=== PATIENT | male | born 1950 | race Caucasian/White ===

== ENCOUNTER 2016-12-06 22:54 | Emergency (ER) | payer OTHER ==
[~2016-12-06] VITALS: Ht 175.3 cm; Wt 90.7 kg
[~2016-12-06 22:54] MED LIST: ASPI-231 PO; METO-169 PO
[2016-12-06 23:38] LABS: Basophils # (auto) 0.1 uL; Basophils % (auto) 0.6 % (0.0-2.0); Eosinophils # (auto) 0.2 uL; Eosinophils % (auto) 2.4 % (0.0-7.0); Hematocrit 45.6 % (41.0-53.0); Hemoglobin 15.3 g/dL (13.5-17.5); Lymphocytes # (auto) 2.7 uL; Lymphocytes % (auto) 31.8 % (10.0-50.0); Mean Corpuscular Hemoglobin 30.5 pg (28.0-32.0); Mean Corpuscular Hgb Conc. 33.6 g/dL (32.0-36.0); Mean Corpuscular Volume 90.6 fL (80.0-100.0); Mean Platelet Volume 8.1 fL (7.4-10.4); Monocytes % (auto) 11.8 % (0.0-12.0); Neutrophils # (auto) 4.4 uL; Neutrophils % (auto) 53.4 % (37.0-80.0); Platelet Count (auto) 251 10^3/uL (140-450); Red Cell Distribution Width 12.8 % (11.6-16.0); White Blood Cell 8.4 10^3/uL (4.4-10.8)
[2016-12-06 23:53] LABS: INR 0.98 (0.9-1.15); Partial Thromboplastin Time 29.2 sec (22.64-33.71); Prothrombin Time 10.7 sec (9.37-12.3)
[2016-12-06 23:55] LABS: Albumin 3.8 g/dL (3.4-5.0); Anion Gap 10 (5-15); Blood Urea Nitrogen 20 mg/dL (7-18); Calcium 8.4 mg/dL (8.5-10.1); Carbon Dioxide 26 mmol/L (21-32); Chloride 108 mmol/L (98-107); Magnesium 2.1 mg/dL (1.6-2.6); Potassium 4.1 mmol/L (3.5-5.1); Sodium 144 mmol/L (136-145)
[2016-12-06 23:58] LABS: Aspartate Aminotransferase 13 U/L (15-37); BUN/Creatinine Ratio 24.4; GFR African American 122 mL/min; GFR Non-African American 101 mL/min; Glucose 104 mg/dL (74-106)
[2016-12-07 00:02] LABS: B-Type Natriuretic Peptide 28.14 pg/mL (0-100)
[2016-12-07 00:03] LABS: Alkaline Phosphatase 76 U/L (45-117); Bilirubin, Total 0.4 mg/dL (0.2-1.0)
[2016-12-07 00:06] LABS: Temperature: 23.1 C (20.0-25.0)
[2016-12-07] MEDS ORDERED: PANTOPRAZOLE 40 MG TAB PO ONE (07:15)
[2016-12-07 07:40] VITALS: BP 166/97
== END 2016-12-07 07:15 | disposition home or self-care (01) ==
LOC: ER 22:56
DX: K29.70 Gastritis, unspecified, without bleeding (principal); R07.89 Other chest pain; I10 Essential (primary) hypertension; I25.10 Atherosclerotic heart disease of native coronary artery without angina pectoris; F17.210 Nicotine dependence, cigarettes, uncomplicated; Z95.1 Presence of aortocoronary bypass graft
CPT/HCPCS: 36415; 71020; 80053; 83735; 83880; 84484; 85025; 85610; 85730; 93005; 94761

== ENCOUNTER 2018-09-25 05:23 | Emergency (ER) | payer OTHER ==
[~2018-09-25] VITALS: Ht 175.3 cm; Wt 95.3 kg
[2018-09-25 06:13] LABS: Basophils # (auto) 0 uL; Basophils % (auto) 0.5 % (0.0-2.0); Eosinophils # (auto) 0.2 uL; Eosinophils % (auto) 2.2 % (0.0-7.0); Hematocrit 47.2 % (41.0-53.0); Hemoglobin 15.8 g/dL (13.5-17.5); Lymphocytes # (auto) 2.5 uL; Lymphocytes % (auto) 33.7 % (10.0-50.0); Mean Corpuscular Hemoglobin 31.4 pg (28.0-32.0); Mean Corpuscular Hgb Conc. 33.5 g/dL (32.0-36.0); Mean Corpuscular Volume 93.8 fL (80.0-100.0); Monocytes # (auto) 0.9 uL; Monocytes % (auto) 11.8 % (0.0-12.0); Neutrophils # (auto) 3.8 uL; Neutrophils % (auto) 51.8 % (37.0-80.0); Nucleated Red Blood Cells % 0.1 %; Platelet Count (auto) 211 10^3/uL (140-450); Red Blood Cells 5.04 10^6/uL (4.5-5.90); Red Cell Distribution Width 13.2 % (11.8-14.3); White Blood Cell 7.3 10^3/uL (4.4-10.8)
[2018-09-25 06:35] LABS: Albumin 3.8 g/dL (3.4-5.0); Anion Gap 10 (5-15); BUN/Creatinine Ratio 22.5; Blood Urea Nitrogen 20 mg/dL (7-18); Calcium 8.7 mg/dL (8.5-10.1); Carbon Dioxide 26 mmol/L (21-32); Chloride 106 mmol/L (98-107); GFR African American 110 mL/min; GFR Non-African American 91 mL/min; Glucose 108 mg/dL (74-106); Magnesium 2.3 mg/dL (1.6-2.6); Sodium 142 mmol/L (136-145)
[2018-09-25 06:51] LABS: Alanine Aminotransferase 32 U/L (16-61); Alkaline Phosphatase 86 U/L (45-117); Aspartate Aminotransferase 11 U/L (15-37); Bilirubin, Total 0.5 mg/dL (0.2-1.0); Total Protein 7.3 g/dL (6.4-8.2)
[2018-09-25] MEDS ORDERED: SODIUM CHLORIDE 0.9% 1,000 ML IV ONE (07:11)
[2018-09-25 09:39] LABS: Urine Bacteria NONE SEEN /hpf (None Seen); Urine Blood Negative /uL (Negative); Urine Mucus FEW (None Seen); Urine Specific Gravity 1.026 (1.001-1.035); Urine WBC 1 /hpf (0 - 3)
[2018-09-25 12:33] VITALS: BP 128/71
== END 2018-09-25 13:20 | disposition home or self-care (01) ==
LOC: ER 05:26
DX: R07.89 Other chest pain (principal); K21.0 Gastro-esophageal reflux disease with esophagitis; I10 Essential (primary) hypertension; I25.810 Atherosclerosis of coronary artery bypass graft(s) without angina pectoris; I25.2 Old myocardial infarction; Z95.1 Presence of aortocoronary bypass graft; Z87.891 Personal history of nicotine dependence; Z88.0 Allergy status to penicillin
CPT/HCPCS: 36415; 71045; 80053; 81001; 83735; 83880; 84484; 85025; 93005; 94761; 99284; J7030